=== PATIENT | female | born 1980 | race Caucasian/White ===

== ENCOUNTER 2017-08-27 14:29 | Emergency (ER) | payer SELFPAY ==
[~2017-08-27] VITALS: Ht 167.6 cm; Wt 90.7 kg
[2017-08-27 14:30] VITALS: BP_SYST 139
[2017-08-27 15:16] VITALS: BP_SYST 123
== END 2017-08-27 15:16 | disposition home or self-care (01) ==
LOC: SED 14:29
DX: E11.649 Type 2 diabetes mellitus with hypoglycemia without coma (principal)
CPT/HCPCS: 82962; 99283